=== PATIENT | female | born 1990 | race African-American/Black ===

== ENCOUNTER 2022-09-30 13:00 | Outpatient (RCR) | payer BC, SELFPAY | END 2022-11-12 12:29 | disposition home or self-care (01) | PROVIDERS: PCP Physician Assistant Medical; Visit Provider Physician Assistant Medical | DX: G43.109 Migraine with aura, not intractable, without status migrainosus (principal); Z51.89 Encounter for other specified aftercare | CPT/HCPCS: 97110; 97140; 97161 ==